=== PATIENT | male | born 1945 | race Caucasian/White ===

== ENCOUNTER 2019-11-09 14:40 | Inpatient (IN) ==
[2019-11-09] MEDS ORDERED: clonazePAM 0.5 MG TABLET PO STA (18:29)
[2019-11-09] MEDS ORDERED: *HR* FentaNYL (PF) 100 MCG/2 ML VIAL IVP STA (19:26)
[2019-11-09] MEDS ORDERED: Ondansetron 4 MG/2 ML VIAL IVP ONE (19:26)
[2019-11-09 20:41] LABS: Hematocrit 39.3 % (37.5-50.1); Hemoglobin 13.1 g/dL (12.9-16.9); Mean Corpuscular HGB Conc 33.3 g/dL (31.6-35.5); Mean Corpuscular Hemoglobin 31.9 pg (28.0-33.3); Mean Corpuscular Volume 95.6 fL (83.0-100.0); Mean Platelet Volume 9.2 fL (9.4-12.4); Platelet Count 206 K/mcL (140-400); Red Blood Count 4.11 M/mcL (4.19-5.50); Red Cell Distribution Width 12.1 % (11.5-14.5)
[2019-11-09 21:00] LABS: BUN/Creatinine Ratio 32 (6-26); Blood Urea Nitrogen 24 mg/dL (8-23); Calcium 8.6 mg/dL (8.6-10.3); Carbon Dioxide 30 mEq/L (23-29); Chloride 98 mEq/L (98-107); Glucose 135 mg/dL (70-105); Osmolality,Calculated 274 (280-300); Potassium 4.8 mEq/L (3.5-5.1); Sodium 129 mEq/L (136-145); eGFR For African Americans > 60 (> 60); eGFR For Non-African Americans > 60 (> 60)
[2019-11-09] MEDS ORDERED: Naloxone 0.4 MG/ML INJ IVP PRN (21:42)
[2019-11-09] MEDS ORDERED: 0.9 % Sodium Chloride 1,000 ML IVC SCH (22:15)
[2019-11-09] MEDS ORDERED: *HR* Rivaroxaban 10 MG TABLET PO SCH (22:45)
[2019-11-10] MEDS: Levalbuterol 1 PUFF INHALER IH SCH ×4 (04:01→21:26)
[2019-11-10 05:06] LABS: Basophils % 0.1 %; Hematocrit 39.8 % (37.5-50.1); Immature Granulocytes % 0.6 % (0-4); Lymphocytes # 0.9 K/mcL (0.6-4.6); Lymphocytes % 7.6 %; Mean Corpuscular HGB Conc 32.7 g/dL (31.6-35.5); Mean Corpuscular Hemoglobin 31.9 pg (28.0-33.3); Mean Corpuscular Volume 97.8 fL (83.0-100.0); Mean Platelet Volume 9.4 fL (9.4-12.4); Monocytes # 1.8 K/mcL (0.0-1.3); Monocytes % 15.6 %; Platelet Count 177 K/mcL (140-400); Red Blood Count 4.07 M/mcL (4.19-5.50); Red Cell Distribution Width 12.2 % (11.5-14.5); Segmented Neutrophils % 76.1 %; White Blood Count 11.8 K/mcL (4.3-11.1)
[2019-11-10 05:25] LABS: BUN/Creatinine Ratio 30 (6-26); Blood Urea Nitrogen 23 mg/dL (8-23); Calcium 8.9 mg/dL (8.6-10.3); Carbon Dioxide 30 mEq/L (23-29); Chloride 98 mEq/L (98-107); Glucose 108 mg/dL (70-105); Osmolality,Calculated 278 (280-300); Potassium 4.7 mEq/L (3.5-5.1); Sodium 132 mEq/L (136-145); eGFR For African Americans > 60 (> 60); eGFR For Non-African Americans > 60 (> 60)
[2019-11-10] MEDS: Metoprolol 100 MG TABLET PO SCH ×2 (08:04→21:05)
[2019-11-10] MEDS ORDERED: *HR* Metoprolol 5 MG/5 ML VIAL IVP STA (19:07)
[2019-11-10] MEDS: 0.9 % Sodium Chloride 1,000 ML IVC SCH (23:30)
[2019-11-11] MEDS ORDERED: Amiodarone Premix 150 MG/100 ML BAG IVPB ONE ×2 (01:38→03:29)
[2019-11-11] MEDS: Levalbuterol 1 PUFF INHALER IH SCH ×4 (03:37→21:52)
[2019-11-11] MEDS ORDERED: Amiodarone Premix 360 MG/200 ML BAG IVC ONE (04:00)
[2019-11-11 04:17] LABS: BUN/Creatinine Ratio 34 (6-26); Blood Urea Nitrogen 21 mg/dL (8-23); Carbon Dioxide 29 mEq/L (23-29); Chloride 98 mEq/L (98-107); Glucose 123 mg/dL (70-105); Osmolality,Calculated 282 (280-300); Potassium 4.2 mEq/L (3.5-5.1); Sodium 134 mEq/L (136-145); eGFR For African Americans > 60 (> 60); eGFR For Non-African Americans > 60 (> 60)
[2019-11-11] MEDS: clonazePAM 0.5 MG TABLET PO PRN ×2 (05:12→17:33)
[2019-11-11] MEDS: Metoprolol 100 MG TABLET PO SCH ×2 (06:56→22:44)
[2019-11-11] MEDS: hydrOXYzine pamoate 25 MG CAPSULE PO PRN ×2 (06:56→20:01)
[2019-11-11] MEDS: Amiodarone Premix 360 MG/200 ML BAG IVC SCH ×2 (11:07→22:45)
[2019-11-11] MEDS: 0.9 % Sodium Chloride 1,000 ML IVC SCH (12:45)
[2019-11-11] MEDS: *HR* Rivaroxaban 10 MG TABLET PO SCH (17:33)
[2019-11-11] MEDS ORDERED: *HR* LORazepam 2 MG/ML VIAL IVP PRN (17:56)
[2019-11-11] MEDS: *HR* LORazepam 2 MG/ML VIAL IVP PRN ×2 (18:48→20:00)
[2019-11-12] MEDS: *HR* LORazepam 2 MG/ML VIAL IVP PRN ×2 (00:34→20:17)
[2019-11-12 03:23] LABS: Basophils % 0.4 %; Eosinophils % 0.3 %; Hematocrit 38.4 % (37.5-50.1); Hemoglobin 12.5 g/dL (12.9-16.9); Immature Granulocytes % 0.4 % (0-4); Lymphocytes # 0.9 K/mcL (0.6-4.6); Lymphocytes % 8.4 %; Mean Corpuscular HGB Conc 32.6 g/dL (31.6-35.5); Mean Corpuscular Hemoglobin 31.6 pg (28.0-33.3); Mean Corpuscular Volume 97.2 fL (83.0-100.0); Mean Platelet Volume 9.9 fL (9.4-12.4); Monocytes # 1.9 K/mcL (0.0-1.3); Monocytes % 16.9 %; Neutrophils # 8.2 K/mcL (1.6-8.9); Platelet Count 203 K/mcL (140-400); Red Blood Count 3.95 M/mcL (4.19-5.50); Red Cell Distribution Width 12.3 % (11.5-14.5); Segmented Neutrophils % 73.6 %; White Blood Count 11.1 K/mcL (4.3-11.1)
[2019-11-12] MEDS: Levalbuterol 1 PUFF INHALER IH SCH ×4 (03:57→21:24)
[2019-11-12] MEDS: clonazePAM 0.5 MG TABLET PO PRN (08:20)
[2019-11-12] MEDS: Folic Acid 1 MG TABLET PO SCH (08:20)
[2019-11-12] MEDS: Thiamine (B-1) 100 MG TABLET PO SCH (08:20)
[2019-11-12] MEDS: Metoprolol 100 MG TABLET PO SCH ×2 (08:20→20:17)
[2019-11-12] MEDS: *HR* Rivaroxaban 10 MG TABLET PO SCH (16:26)
[2019-11-12] MEDS ORDERED: 0.9 % Sodium Chloride 250 ML IVC ONE (18:59)
[2019-11-13] MEDS: *HR* LORazepam 2 MG/ML VIAL IVP PRN (03:12)
[2019-11-13] MEDS: Levalbuterol 1 PUFF INHALER IH SCH ×2 (04:12→11:30)
[2019-11-13 07:11] LABS: BUN/Creatinine Ratio 28 (6-26); Blood Urea Nitrogen 20 mg/dL (8-23); Calcium 8.5 mg/dL (8.6-10.3); Carbon Dioxide 31 mEq/L (23-29); Chloride 101 mEq/L (98-107); Glucose 123 mg/dL (70-105); Magnesium 1.8 mg/dL (1.6-2.6); Osmolality,Calculated 288 (280-300); Phosphorous 2.8 mg/dL (2.7-4.5); Potassium 3.9 mEq/L (3.5-5.1); Sodium 137 mEq/L (136-145); eGFR For African Americans > 60 (> 60); eGFR For Non-African Americans > 60 (> 60)
[2019-11-13] MEDS: Folic Acid 1 MG TABLET PO SCH (08:11)
[2019-11-13] MEDS: Metoprolol 100 MG TABLET PO SCH (08:11)
[2019-11-13] MEDS: Thiamine (B-1) 100 MG TABLET PO SCH (08:11)
[2019-11-13 12:09] VITALS: BP 122/73
== END 2019-11-13 13:33 | disposition home health service (06) | DRG 200 ==
LOC: 2NENU 14:40 → EMEROOARM 14:40 → SUATTDRO 20:09 → 2NENU 21:38 → 3NENU 11-11 12:30 → SUATTDRO 11-11 12:31
PROVIDERS: ADMIT Internal Medicine; ATTEND Internal Medicine

== ENCOUNTER 2020-01-22 18:51 | Inpatient (IN) ==
[2020-01-22] MEDS ORDERED: *HR* Promethazine 25 MG/ML VIAL IVP PRN (21:50)
[2020-01-22] MEDS ORDERED: Acetaminophen 325 MG TABLET PO PRN (21:50)
[2020-01-22] MEDS ORDERED: Naloxone 0.4 MG/ML INJ IVP PRN (21:50)
[2020-01-22] MEDS ORDERED: clonazePAM 0.5 MG TABLET PO PRN (22:51)
[2020-01-22] MEDS ORDERED: hydrOXYzine pamoate 25 MG CAPSULE PO PRN (22:51)
[2020-01-23 01:26] LABS: Basophils # 0.1 K/mcL (0.0-0.2); Basophils % 0.6 %; Eosinophils # 0.1 K/mcL (0.0-0.6); Eosinophils % 1.3 %; Hematocrit 40.7 % (37.5-50.1); Hemoglobin 13.5 g/dL (12.9-16.9); Immature Granulocytes % 0.3 % (0-4); Lymphocytes # 1.3 K/mcL (0.6-4.6); Lymphocytes % 14.4 %; Mean Corpuscular HGB Conc 33.2 g/dL (31.6-35.5); Mean Corpuscular Volume 96.4 fL (83.0-100.0); Mean Platelet Volume 9.4 fL (9.4-12.4); Monocytes # 0.9 K/mcL (0.0-1.3); Monocytes % 10.3 %; Neutrophils # 6.6 K/mcL (1.6-8.9); Platelet Count 205 K/mcL (140-400); Red Blood Count 4.22 M/mcL (4.19-5.50); Red Cell Distribution Width 12.8 % (11.5-14.5); Segmented Neutrophils % 73.1 %; White Blood Count 9.1 K/mcL (4.3-11.1)
[2020-01-23 01:46] LABS: BUN/Creatinine Ratio 16 (6-26); Blood Urea Nitrogen 16 mg/dL (8-23); Calcium 8.9 mg/dL (8.6-10.3); Carbon Dioxide 28 mEq/L (23-29); Chloride 100 mEq/L (98-107); Glucose 195 mg/dL (70-105); Osmolality,Calculated 283 (280-300); Phosphorous 2.9 mg/dL (2.7-4.5); Potassium 4.4 mEq/L (3.5-5.1); Sodium 133 mEq/L (136-145); eGFR For African Americans > 60 (> 60); eGFR For Non-African Americans > 60 (> 60)
[2020-01-23] MEDS ORDERED: D5% in Water 1,000 ML IVC PRN (07:16)
[2020-01-23] MEDS ORDERED: Dextrose Gel 15 GM/37.5 ML TUBE PO PRN ×2 (07:16)
[2020-01-23] MEDS ORDERED: *HR* Dextrose 50 % in Water (Vial) 50 ML VIAL IVP PRN (07:16)
[2020-01-23] MEDS: Insulin LISPRO 300 UNITS/3 ML VIAL SQ SCH ×3 (07:37→15:56)
[2020-01-23] MEDS: Metoprolol XL (24 HR) Succ 50 MG TAB.ER.24H PO SCH (07:50)
[2020-01-23] MEDS ORDERED: Ipratropium/Albuterol Neb 3 ML IH PRN (10:05)
[2020-01-23] MEDS ORDERED: Insulin LISPRO 300 UNITS/3 ML VIAL SQ SCH (21:00)
[2020-01-24 01:36] LABS: Basophils # 0.1 K/mcL (0.0-0.2); Basophils % 0.5 %; Eosinophils # 0.1 K/mcL (0.0-0.6); Eosinophils % 1.2 %; Hematocrit 40.1 % (37.5-50.1); Hemoglobin 13.2 g/dL (12.9-16.9); Immature Granulocytes % 0.2 % (0-4); Lymphocytes # 1.1 K/mcL (0.6-4.6); Lymphocytes % 11.1 %; Mean Corpuscular HGB Conc 32.9 g/dL (31.6-35.5); Mean Corpuscular Hemoglobin 31.6 pg (28.0-33.3); Mean Corpuscular Volume 95.9 fL (83.0-100.0); Mean Platelet Volume 9.7 fL (9.4-12.4); Monocytes # 1.2 K/mcL (0.0-1.3); Neutrophils # 7.3 K/mcL (1.6-8.9); Platelet Count 210 K/mcL (140-400); Red Blood Count 4.18 M/mcL (4.19-5.50); Red Cell Distribution Width 12.7 % (11.5-14.5); White Blood Count 9.7 K/mcL (4.3-11.1)
[2020-01-24 01:52] LABS: BUN/Creatinine Ratio 23 (6-26); Blood Urea Nitrogen 18 mg/dL (8-23); Calcium 9.1 mg/dL (8.6-10.3); Carbon Dioxide 26 mEq/L (23-29); Chloride 101 mEq/L (98-107); Glucose 102 mg/dL (70-105); Osmolality,Calculated 280 (280-300); Potassium 4.4 mEq/L (3.5-5.1); Sodium 134 mEq/L (136-145); eGFR For African Americans > 60 (> 60); eGFR For Non-African Americans > 60 (> 60)
[2020-01-24] MEDS ORDERED: CeFAZolin Syr 2,000MG/20 ML 2,000 MG/20 ML SYRINGE IVPB ONE ×2 (06:00→08:15)
[2020-01-24] MEDS: Insulin LISPRO 300 UNITS/3 ML VIAL SQ SCH (07:43)
[2020-01-24] MEDS: Metoprolol XL (24 HR) Succ 50 MG TAB.ER.24H PO SCH (07:59)
[2020-01-24] MEDS ORDERED: *HR* Propofol 200 MG/20 ML VIAL IVP ONE (08:04)
[2020-01-24] MEDS ORDERED: *HR* FentaNYL (PF) 100 MCG/2 ML VIAL ONE (08:04)
[2020-01-24] MEDS ORDERED: Ondansetron 4 MG/2 ML VIAL ONE (08:04)
[2020-01-24] MEDS ORDERED: Lidocaine -MPF 2% 2 ML VIAL ONE (08:04)
[2020-01-24] MEDS ORDERED: *HR* Succinylcholine 200 MG/10 ML VIAL IVP ONE (08:04)
[2020-01-24] MEDS ORDERED: Dexamethasone 4 MG/ML VIAL ONE (08:04)
[2020-01-24] MEDS ORDERED: *HR* Rocuronium Bromide 50 MG/5 ML VIAL ONE (08:04)
[2020-01-24] MEDS ORDERED: flumazeniL 0.5 MG/5 ML VIAL IVP PRN (09:11)
[2020-01-24] MEDS ORDERED: Ondansetron 4 MG/2 ML VIAL IVP ONE (09:11)
[2020-01-24] MEDS ORDERED: Naloxone 0.4 MG/ML INJ IVP PRN (09:11)
[2020-01-24] MEDS ORDERED: *HR* OxyCODONE Immed Rel 5 MG TABLET PO PRN (09:11)
[2020-01-24] MEDS ORDERED: *HR* FentaNYL (PF) 100 MCG/2 ML VIAL IVP PRN (09:11)
[2020-01-24] MEDS ORDERED: EPHEDrine 50 MG/ML VIAL ONE (09:37)
[2020-01-24] MEDS: *HR* HYDROmorphone PF 0.5 MG/0.5 ML SYRINGE IVP PRN ×4 (10:53→11:08)
[2020-01-24] MEDS ORDERED: Acetaminophen 325 MG TABLET PO PRN (12:06)
[2020-01-24] MEDS ORDERED: Ipratropium/Albuterol Neb 3 ML IH PRN (12:06)
[2020-01-24] MEDS ORDERED: clonazePAM 0.5 MG TABLET PO PRN (12:06)
[2020-01-24] MEDS ORDERED: Ondansetron 4 MG/2 ML VIAL IVP PRN (12:06)
[2020-01-24] MEDS: 0.9 % Sodium Chloride 1,000 ML IVC SCH (12:29)
[2020-01-24] MEDS: Gabapentin 300 MG CAPSULE PO SCH ×2 (14:26→21:11)
[2020-01-24] MEDS: *HR* Heparin 5,000 UNIT/ML VIAL SQ SCH ×3 (14:26→21:42)
[2020-01-24] MEDS: Sennosides/Docusate Sodium TABLET PO SCH (21:11)
[2020-01-24] MEDS: Famotidine 20 MG TABLET PO SCH (21:11)
[2020-01-25 01:53] LABS: Basophils % 0.1 %; Hematocrit 39.6 % (37.5-50.1); Immature Granulocytes % 0.5 % (0-4); Lymphocytes # 0.6 K/mcL (0.6-4.6); Mean Corpuscular HGB Conc 32.8 g/dL (31.6-35.5); Mean Corpuscular Hemoglobin 32.3 pg (28.0-33.3); Mean Corpuscular Volume 98.3 fL (83.0-100.0); Monocytes # 1.9 K/mcL (0.0-1.3); Monocytes % 12.3 %; Neutrophils # 12.6 K/mcL (1.6-8.9); Platelet Count 156 K/mcL (140-400); Red Blood Count 4.03 M/mcL (4.19-5.50); Red Cell Distribution Width 13.1 % (11.5-14.5); Segmented Neutrophils % 83.1 %; White Blood Count 15.1 K/mcL (4.3-11.1)
[2020-01-25] MEDS: 0.9 % Sodium Chloride 1,000 ML IVC SCH (02:04)
[2020-01-25 04:58] LABS: BUN/Creatinine Ratio 29 (6-26); Blood Urea Nitrogen 28 mg/dL (8-23); Calcium 8.8 mg/dL (8.6-10.3); Carbon Dioxide 29 mEq/L (23-29); Chloride 102 mEq/L (98-107); Glucose 144 mg/dL (70-105); Osmolality,Calculated 284 (280-300); Potassium 5.4 mEq/L (3.5-5.1); Sodium 133 mEq/L (136-145); eGFR For African Americans > 60 (> 60); eGFR For Non-African Americans > 60 (> 60)
[2020-01-25] MEDS: *HR* Heparin 5,000 UNIT/ML VIAL SQ SCH ×3 (05:06→20:01)
[2020-01-25] MEDS: Metoprolol XL (24 HR) Succ 50 MG TAB.ER.24H PO SCH (08:43)
[2020-01-25] MEDS: Famotidine 20 MG TABLET PO SCH ×2 (08:43→20:00)
[2020-01-25] MEDS: Sennosides/Docusate Sodium TABLET PO SCH ×2 (08:43→20:01)
[2020-01-25] MEDS: Gabapentin 300 MG CAPSULE PO SCH ×3 (08:43→20:01)
[2020-01-25 11:26] LABS: BUN/Creatinine Ratio 26 (6-26); Blood Urea Nitrogen 25 mg/dL (8-23); Calcium 8.7 mg/dL (8.6-10.3); Carbon Dioxide 29 mEq/L (23-29); Chloride 102 mEq/L (98-107); Glucose 85 mg/dL (70-105); Osmolality,Calculated 284 (280-300); Potassium 4.4 mEq/L (3.5-5.1); Sodium 135 mEq/L (136-145); eGFR For African Americans > 60 (> 60); eGFR For Non-African Americans > 60 (> 60)
[2020-01-26 02:44] LABS: Basophils % 0.1 %; Eosinophils % 0.1 %; Hematocrit 38.1 % (37.5-50.1); Hemoglobin 12.6 g/dL (12.9-16.9); Immature Granulocytes % 0.7 % (0-4); Lymphocytes % 6.6 %; Mean Corpuscular HGB Conc 33.1 g/dL (31.6-35.5); Mean Corpuscular Hemoglobin 31.6 pg (28.0-33.3); Mean Corpuscular Volume 95.5 fL (83.0-100.0); Mean Platelet Volume 10.5 fL (9.4-12.4); Monocytes # 1.9 K/mcL (0.0-1.3); Monocytes % 12.3 %; Neutrophils # 12.1 K/mcL (1.6-8.9); Platelet Count 182 K/mcL (140-400); Red Blood Count 3.99 M/mcL (4.19-5.50); Red Cell Distribution Width 12.9 % (11.5-14.5); Segmented Neutrophils % 80.2 %; White Blood Count 15.1 K/mcL (4.3-11.1)
[2020-01-26 02:48] LABS: BUN/Creatinine Ratio 36 (6-26); Blood Urea Nitrogen 24 mg/dL (8-23); Calcium 8.7 mg/dL (8.6-10.3); Carbon Dioxide 26 mEq/L (23-29); Chloride 103 mEq/L (98-107); Glucose 103 mg/dL (70-105); Osmolality,Calculated 284 (280-300); Potassium 4.8 mEq/L (3.5-5.1); Sodium 135 mEq/L (136-145); eGFR For African Americans > 60 (> 60); eGFR For Non-African Americans > 60 (> 60)
[2020-01-26] MEDS: *HR* Heparin 5,000 UNIT/ML VIAL SQ SCH ×3 (04:44→20:36)
[2020-01-26] MEDS: Gabapentin 300 MG CAPSULE PO SCH ×3 (08:00→20:42)
[2020-01-26] MEDS: Sennosides/Docusate Sodium TABLET PO SCH ×2 (08:00→20:42)
[2020-01-26] MEDS: Metoprolol XL (24 HR) Succ 50 MG TAB.ER.24H PO SCH (08:00)
[2020-01-26] MEDS: Famotidine 20 MG TABLET PO SCH ×2 (08:00→20:41)
[2020-01-27 04:00] LABS: Basophils % 0.3 %; Eosinophils % 0.3 %; Hematocrit 40.2 % (37.5-50.1); Hemoglobin 13.2 g/dL (12.9-16.9); Immature Granulocytes % 0.5 % (0-4); Lymphocytes % 9.4 %; Mean Corpuscular HGB Conc 32.8 g/dL (31.6-35.5); Mean Corpuscular Hemoglobin 31.3 pg (28.0-33.3); Mean Corpuscular Volume 95.3 fL (83.0-100.0); Mean Platelet Volume 9.2 fL (9.4-12.4); Monocytes # 1.6 K/mcL (0.0-1.3); Monocytes % 14.5 %; Neutrophils # 8.1 K/mcL (1.6-8.9); Platelet Count 223 K/mcL (140-400); Red Blood Count 4.22 M/mcL (4.19-5.50); Red Cell Distribution Width 13.2 % (11.5-14.5); White Blood Count 10.8 K/mcL (4.3-11.1)
[2020-01-27] MEDS: *HR* Heparin 5,000 UNIT/ML VIAL SQ SCH (05:12)
[2020-01-27] MEDS: Metoprolol XL (24 HR) Succ 50 MG TAB.ER.24H PO SCH (08:30)
[2020-01-27] MEDS: Famotidine 20 MG TABLET PO SCH (08:30)
[2020-01-27] MEDS: Sennosides/Docusate Sodium TABLET PO SCH (08:30)
[2020-01-27] MEDS: Gabapentin 300 MG CAPSULE PO SCH (08:30)
[2020-01-27 08:36] VITALS: BP 125/88
== END 2020-01-27 10:32 | disposition home or self-care (01) | DRG 164 ==
LOC: 2NNU → SUATTDRO 20:30
PROVIDERS: ADMIT Internal Medicine; ATTEND Family Medicine

== ENCOUNTER 2020-09-17 22:32 | Observation (INO) ==
[2020-09-17] MEDS ORDERED: Cefdinir 300 MG CAPSULE PO ONE (23:09)
[2020-09-17 23:20] LABS: Basophils # 0.1 K/mcL (0.0-0.2); Basophils % 0.6 %; Eosinophils # 0.1 K/mcL (0.0-0.6); Eosinophils % 1.5 %; Hematocrit 41.7 % (37.5-50.1); Hemoglobin 13.5 g/dL (12.9-16.9); Immature Granulocytes % 0.4 % (0-4); Lymphocytes # 1.1 K/mcL (0.6-4.6); Lymphocytes % 14.2 %; Mean Corpuscular HGB Conc 32.4 g/dL (31.6-35.5); Mean Corpuscular Hemoglobin 31.3 pg (28.0-33.3); Mean Corpuscular Volume 96.5 fL (83.0-100.0); Mean Platelet Volume 8.7 fL (9.4-12.4); Monocytes # 1.3 K/mcL (0.0-1.3); Monocytes % 16.5 %; Neutrophils # 5.3 K/mcL (1.6-8.9); Platelet Count 226 K/mcL (140-400); Red Blood Count 4.32 M/mcL (4.19-5.50); Red Cell Distribution Width 13.2 % (11.5-14.5); Segmented Neutrophils % 66.8 %; White Blood Count 7.9 K/mcL (4.3-11.1)
[2020-09-17] MEDS ORDERED: Ipratropium/Albuterol Neb 3 ML IH ONE (23:32)
[2020-09-17] MEDS ORDERED: methylPREDNISolone 125 MG/2 ML VIAL IVP ONE (23:33)
[2020-09-17 23:38] LABS: BUN/Creatinine Ratio 19 (6-26); Blood Urea Nitrogen 16 mg/dL (8-23); Calcium 9.4 mg/dL (8.6-10.3); Carbon Dioxide 33 mEq/L (23-29); Chloride 100 mEq/L (98-107); Glucose 100 mg/dL (70-105); Osmolality,Calculated 285 (280-300); Potassium 4.9 mEq/L (3.5-5.1); Sodium 137 mEq/L (136-145); eGFR For African Americans > 60 (> 60); eGFR For Non-African Americans > 60 (> 60)
[2020-09-17 23:39] LABS: Troponin I < 0.03 ng/mL (< 0.04)
[2020-09-17] MEDS ORDERED: Isovue-370 500 ML BOTTLE IVP ONE (23:56)
[2020-09-18] MEDS ORDERED: Albuterol 2.5 MG/3 ML NEBULIZER IH ONE (02:25)
[2020-09-18] MEDS ORDERED: Azithromycin 500 MG in 0.9 % Sodium Chloride 250 ML IVPB ONE (02:34)
[2020-09-18] MEDS ORDERED: Acetaminophen 325 MG TABLET PO PRN (03:30)
[2020-09-18] MEDS ORDERED: Naloxone 0.4 MG/ML INJ IVP PRN (03:30)
[2020-09-18] MEDS ORDERED: Ipratropium/Albuterol Neb 3 ML IH SCH (04:00)
[2020-09-18 04:50] LABS: Basophils % 0.1 %; Hematocrit 38.8 % (37.5-50.1); Hemoglobin 12.6 g/dL (12.9-16.9); Immature Granulocytes % 0.4 % (0-4); Lymphocytes # 0.4 K/mcL (0.6-4.6); Lymphocytes % 4.9 %; Mean Corpuscular HGB Conc 32.5 g/dL (31.6-35.5); Mean Corpuscular Hemoglobin 30.8 pg (28.0-33.3); Mean Corpuscular Volume 94.9 fL (83.0-100.0); Mean Platelet Volume 9.1 fL (9.4-12.4); Monocytes % 0.4 %; Neutrophils # 6.8 K/mcL (1.6-8.9); Platelet Count 200 K/mcL (140-400); Red Blood Count 4.09 M/mcL (4.19-5.50); Red Cell Distribution Width 13.2 % (11.5-14.5); Segmented Neutrophils % 94.2 %; White Blood Count 7.2 K/mcL (4.3-11.1)
[2020-09-18 05:12] LABS: Alanine Aminotransferase 9 Units/L (7-52); Albumin 3.9 g/dL (3.5-5.7); Albumin/Globulin Ratio 1.5 (1.1-2.2); Alkaline Phosphatase 88 Units/L (34-104); Aspartate Amino Transferase 18 Units/L (13-39); BUN/Creatinine Ratio 21 (6-26); Bilirubin,Total 0.4 mg/dL (0.3-1.0); Blood Urea Nitrogen 16 mg/dL (8-23); Calcium 8.8 mg/dL (8.6-10.3); Carbon Dioxide 22 mEq/L (23-29); Chloride 101 mEq/L (98-107); Globulin 2.6 g/dL (2.4-3.5); Glucose 267 mg/dL (70-105); Osmolality,Calculated 287 (280-300); Potassium 4.6 mEq/L (3.5-5.1); Sodium 133 mEq/L (136-145); Total Protein 6.5 g/dL (6.4-8.9); eGFR For African Americans > 60 (> 60); eGFR For Non-African Americans > 60 (> 60)
[2020-09-18] MEDS ORDERED: MethylPREDNISolone 40 MG/ML VIAL IVP SCH ×3 (06:00→18:00)
[2020-09-18] MEDS: Levalbuterol Neb 1.25 MG/3 ML IH SCH ×5 (07:37→23:45)
[2020-09-18] MEDS: Metoprolol XL (24 HR) Succ 50 MG TAB.ER.24H PO SCH (07:53)
[2020-09-18] MEDS: clonazePAM 0.5 MG TABLET PO SCH ×2 (16:24→19:47)
[2020-09-18] MEDS ORDERED: *HR* Rivaroxaban 10 MG TABLET PO SCH (17:00)
[2020-09-19] MEDS: Levalbuterol Neb 1.25 MG/3 ML IH SCH ×2 (03:52→07:31)
[2020-09-19] MEDS: Metoprolol XL (24 HR) Succ 50 MG TAB.ER.24H PO SCH (07:04)
[2020-09-19 08:49] VITALS: BP 129/72
[2020-09-19] MEDS ORDERED: predniSONE 20 MG TABLET PO SCH (09:00)
[2020-09-19] MEDS ORDERED: Azithromycin 500 MG in 0.9 % Sodium Chloride 250 ML IVPB SCH (09:00)
== END 2020-09-19 10:55 | disposition home or self-care (01) ==
LOC: EMEROOARM 22:32 → 2ANU 22:32 → SUATTDRO 09-18 02:50 → 2ANU 09-18 03:38
PROVIDERS: ADMIT Internal Medicine; ATTEND General Practice

== ENCOUNTER 2021-07-12 23:07 | Inpatient (IN) ==
[2021-07-12] MEDS ORDERED: 0.9 % Sodium Chloride 1,000 ML IVC ONE (23:13)
[2021-07-12 23:27] LABS: ABG Base Excess 0 mEq/L (-2 to 3); ABG HCO3 31 mEq/L (21-27); ABG Oxygen Saturation 89 % (95-98); ABG PCO2 81 mmHg (35-45); ABG PH 7.19 pH Units (7.32-7.45); ABG PO2 72 mmHg (85-104); ABG TCO2 33 mEq/L (20-26)
[2021-07-12 23:36] LABS: Bilirubin,Urine Negative (Negative); Blood,Urine Small (Negative); Clarity,Urine Turbid (Clear); Color,Urine Yellow (Yellow); Glucose,Urine (UA) 30 mg/dL (Normal); Hyaline Casts,Urine Many per lpf (None Seen); Ketones,Urine Trace mg/dL (Negative); Leukocyte Esterase,Urine Negative (Negative); Mucus,Urine Few per lpf (None-Few); Nitrite,Urine Negative (Negative); Protein,Urine >=300 mg/dL (Neg-Trace); Specific Gravity,Urine 1.028 (1.010-1.025); Squamous Epithelial Cell,Urine Few per hpf (None-Few); WBC,Urine 0-3 per hpf (0-3)
[2021-07-12 23:42] LABS: Basophils % 0.2 %; Hemoglobin 13.2 g/dL (12.9-16.9); Immature Granulocytes % 1.8 % (0-4); Lymphocytes # 0.7 K/mcL (0.6-4.6); Lymphocytes % 3.4 %; Mean Corpuscular Hemoglobin 30.7 pg (28.0-33.3); Mean Corpuscular Volume 102.3 fL (83.0-100.0); Mean Platelet Volume 9.1 fL (9.4-12.4); Monocytes # 2.7 K/mcL (0.0-1.3); Monocytes % 14.3 %; Neutrophils # 15.1 K/mcL (1.6-8.9); Nucleated Red Blood Cells 0.2 /100 WBC (0); Platelet Count 320 K/mcL (140-400); Red Cell Distribution Width 13.3 % (11.5-14.5); Segmented Neutrophils % 80.3 %; White Blood Count 18.9 K/mcL (4.3-11.1)
[2021-07-12 23:50] LABS: INR 5.2; Prothrombin Time 57.7 Seconds (9.4-12.1)
[2021-07-13 00:06] LABS: Troponin I 0.04 ng/mL (< 0.04)
[2021-07-13 00:07] LABS: Alanine Aminotransferase 199 Units/L (7-52); Albumin 3.5 g/dL (3.5-5.7); Albumin/Globulin Ratio 1.1 (1.1-2.2); Alkaline Phosphatase 127 Units/L (34-104); Aspartate Amino Transferase 289 Units/L (13-39); BUN/Creatinine Ratio 29 (6-26); Bilirubin,Direct 0.4 mg/dL (0.0-0.2); Bilirubin,Indirect 0.5 mg/dL (0.0-1.0); Bilirubin,Total 0.9 mg/dL (0.3-1.0); Blood Urea Nitrogen 38 mg/dL (8-23); Calcium 8.7 mg/dL (8.6-10.3); Carbon Dioxide 32 mEq/L (23-29); Chloride 96 mEq/L (98-107); Globulin 3.2 g/dL (2.4-3.5); Glucose 181 mg/dL (70-105); Influenza A PCR Negative (Negative); Influenza B PCR Negative (Negative); Osmolality,Calculated 294 (280-300); Resp. Syncytial Virus PCR Negative (Negative); Sodium 135 mEq/L (136-145); Total Protein 6.7 g/dL (6.4-8.9); eGFR For African Americans > 60 (> 60); eGFR For Non-African Americans 52 (> 60)
[2021-07-13 00:09] LABS: SARS-CoV-2 by PCR (In House) Negative (Negative)
[2021-07-13] MEDS ORDERED: Albuterol 2.5 MG/3 ML NEBULIZER IH ONE (00:47)
[2021-07-13] MEDS ORDERED: Sodium Bicarbonate 50 MEQ/50 ML VIAL IVP ONE (00:57)
[2021-07-13] MEDS ORDERED: Calcium Gluconate 1gm/50mL 1 GM/50 ML BAG IVPB ONE (00:57)
[2021-07-13] MEDS ORDERED: Insulin Human Regular 5 UNIT in 0.9 % Sodium Chloride 10 ML IV ONE (00:58)
[2021-07-13] MEDS ORDERED: *HR* Dextrose 50 % in Water (Syg) 50 ML SYRINGE IVP ONE (00:59)
[2021-07-13] MEDS ORDERED: SODIUM ZIRCONIUM CYCLOSILICATE 5 GM POWD.PACK PO ONE (01:00)
[2021-07-13] MEDS ORDERED: Isovue-370 500 ML BOTTLE IVP ONE (01:01)
[2021-07-13 01:43] LABS: ABG Base Excess 4 mEq/L (-2 to 3); ABG HCO3 34 mEq/L (21-27); ABG Oxygen Saturation 100 % (95-98); ABG PCO2 80 mmHg (35-45); ABG PH 7.24 pH Units (7.32-7.45); ABG PO2 361 mmHg (85-104); ABG TCO2 37 mEq/L (20-26)
[2021-07-13 02:05] LABS: Potassium 6.5 mEq/L (3.5-5.1)
[2021-07-13] MEDS ORDERED: 0.9 % Sodium Chloride 1,000 ML IV ONE (02:06)
[2021-07-13] MEDS ORDERED: cefTRIAXone 1,000 MG in Water for inj. (sterile) 10 ML IVP ONE (02:42)
[2021-07-13] MEDS ORDERED: *HR* Labetalol 20 MG/4 ML SYRINGE IVP ONE (02:47)
[2021-07-13] MEDS: Norepinephrine 4 MG/254 ML IV.SOLN IVC SCH ×2 (03:55→20:41)
[2021-07-13] MEDS: 0.9 % Sodium Chloride 1,000 ML IVC SCH ×3 (03:59→21:13)
[2021-07-13] MEDS ORDERED: Ondansetron 4 MG/2 ML VIAL IVP PRN (04:54)
[2021-07-13] MEDS ORDERED: Naloxone 0.4 MG/ML INJ IVP PRN ×2 (04:54)
[2021-07-13] MEDS ORDERED: Acetaminophen 325 MG TABLET PO PRN (04:54)
[2021-07-13] MEDS ORDERED: Perflutren Lipid Microsphere 1.3 ML in 0.9 % Sodium Chloride 8.7 ML IVP PRN (05:03)
[2021-07-13 08:57] LABS: Estimated Average Glucose 131 mg/dl; Hemoglobin A1C 6.2 %; INR 3.4; Prothrombin Time 37.6 Seconds (9.4-12.1)
[2021-07-13 09:12] LABS: Acetaminophen < 10 mcg/mL (10-20); Alanine Aminotransferase 497 Units/L (7-52); Albumin 3.2 g/dL (3.5-5.7); Albumin/Globulin Ratio 1.3 (1.1-2.2); Alkaline Phosphatase 109 Units/L (34-104); Aspartate Amino Transferase 667 Units/L (13-39); BUN/Creatinine Ratio 31 (6-26); Bilirubin,Direct 0.1 mg/dL (0.0-0.2); Bilirubin,Indirect 0.3 mg/dL (0.0-1.0); Bilirubin,Total 0.4 mg/dL (0.3-1.0); Blood Urea Nitrogen 37 mg/dL (8-23); Calcium 8.4 mg/dL (8.6-10.3); Carbon Dioxide 32 mEq/L (23-29); Chloride 100 mEq/L (98-107); Ethanol < 10 mg/dL (Less than 10); Globulin 2.4 g/dL (2.4-3.5); Glucose 154 mg/dL (70-105); Magnesium 2.2 mg/dL (1.6-2.6); Osmolality,Calculated 292 (280-300); Phosphorous 3.4 mg/dL (2.7-4.5); Potassium 5.9 mEq/L (3.5-5.1); Sodium 135 mEq/L (136-145); Total Protein 5.6 g/dL (6.4-8.9); Troponin I 0.04 ng/mL (< 0.04); eGFR For African Americans > 60 (> 60); eGFR For Non-African Americans 59 (> 60)
[2021-07-13 09:47] LABS: C-Reactive Protein 120 mg/L (Less than 10)
[2021-07-13 09:52] LABS: Hepatitis B Surface Antigen Nonreactive (Nonreactive)
[2021-07-13 10:20] LABS: Hepatitis C Virus Antibody Nonreactive (Nonreactive)
[2021-07-13 10:21] LABS: Hepatitis B Core IgM Nonreactive (Nonreactive)
[2021-07-13] MEDS: cefTRIAXone 1,000 MG in 0.9 % Sodium Chloride Mini Bag 100 ML IVPB SCH (10:53)
[2021-07-13] MEDS: Azithromycin 500 MG in 0.9 % Sodium Chloride 250 ML IVPB SCH (11:41)
[2021-07-13] MEDS ORDERED: QUEtiapine Fumarate 25 MG TABLET PO PRN (13:21)
[2021-07-13] MEDS ORDERED: clonazePAM 0.5 MG TABLET PO PRN (13:21)
[2021-07-13] MEDS ORDERED: Levalbuterol Neb 1.25 MG/3 ML IH PRN (13:21)
[2021-07-13 14:09] LABS: Hepatitis A Antibody IgM Nonreactive (Nonreactive)
[2021-07-13] MEDS ORDERED: *HR* Digoxin 0.5 MG/2 ML AMPUL IVP ONE (15:16)
[2021-07-13] MEDS ORDERED: Amiodarone Premix 360 MG/200 ML BAG IVC ONE (17:07)
[2021-07-13] MEDS ORDERED: Amiodarone Premix 150 MG/100 ML BAG IVPB ONE (17:07)
[2021-07-13 18:52] LABS: Amphetamine Screen,Urine Negative ng/mL (Cutoff=1000); Barbiturate Screen,Urine Negative ng/mL (Cutoff=200); Benzodiazepines Screen,Urine Negative ng/mL (Cutoff=200); Cannabinoid Screen,Urine Negative ng/mL (Cutoff = 50); Cocaine Screen,Urine Negative ng/mL (Cutoff= 300); Opiate Screen,Urine Negative ng/mL (Cutoff=300); Phencyclidine Screen,Urine Negative ng/mL (Cutoff=25)
[2021-07-13 18:57] LABS: VBG Ionized Calcium 1.23 mmol/L (1.15-1.35)
[2021-07-13 19:22] LABS: BUN/Creatinine Ratio 36 (6-26); Blood Urea Nitrogen 36 mg/dL (8-23); Carbon Dioxide 35 mEq/L (23-29); Chloride 102 mEq/L (98-107); Glucose 115 mg/dL (70-105); Osmolality,Calculated 293 (280-300); Potassium 5.8 mEq/L (3.5-5.1); Sodium 137 mEq/L (136-145); eGFR For African Americans > 60 (> 60); eGFR For Non-African Americans > 60 (> 60)
[2021-07-13] MEDS ORDERED: Mirtazapine 15 MG TABLET PO SCH (21:00)
[2021-07-13] MEDS ORDERED: Amiodarone Premix 360 MG/200 ML BAG IVC SCH (23:07)
[2021-07-14] MEDS: Amiodarone Premix 360 MG/200 ML BAG IVC SCH ×3 (00:02→15:20)
[2021-07-14 03:50] LABS: Basophils % 0.2 %; Hematocrit 34.9 % (37.5-50.1); Hemoglobin 10.5 g/dL (12.9-16.9); Immature Granulocytes % 0.5 % (0-4); Lymphocytes # 0.7 K/mcL (0.6-4.6); Lymphocytes % 5.6 %; Mean Corpuscular HGB Conc 30.1 g/dL (31.6-35.5); Mean Corpuscular Hemoglobin 30.2 pg (28.0-33.3); Mean Corpuscular Volume 100.3 fL (83.0-100.0); Mean Platelet Volume 9.2 fL (9.4-12.4); Monocytes # 1.3 K/mcL (0.0-1.3); Monocytes % 10.1 %; Neutrophils # 10.7 K/mcL (1.6-8.9); Platelet Count 237 K/mcL (140-400); Red Blood Count 3.48 M/mcL (4.19-5.50); Red Cell Distribution Width 13.7 % (11.5-14.5); Segmented Neutrophils % 83.6 %; White Blood Count 12.9 K/mcL (4.3-11.1)
[2021-07-14 03:57] LABS: INR 2.8; Prothrombin Time 30.9 Seconds (9.4-12.1)
[2021-07-14] MEDS: 0.9 % Sodium Chloride 1,000 ML IVC SCH (03:58)
[2021-07-14 04:00] LABS: Alanine Aminotransferase 376 Units/L (7-52); Albumin 2.6 g/dL (3.5-5.7); Albumin/Globulin Ratio 1.2 (1.1-2.2); Alkaline Phosphatase 84 Units/L (34-104); Aspartate Amino Transferase 255 Units/L (13-39); BUN/Creatinine Ratio 39 (6-26); Bilirubin,Direct 0.1 mg/dL (0.0-0.2); Bilirubin,Indirect 0.2 mg/dL (0.0-1.0); Bilirubin,Total 0.3 mg/dL (0.3-1.0); Blood Urea Nitrogen 35 mg/dL (8-23); Calcium 7.8 mg/dL (8.6-10.3); Carbon Dioxide 33 mEq/L (23-29); Chloride 102 mEq/L (98-107); Globulin 2.2 g/dL (2.4-3.5); Glucose 100 mg/dL (70-105); Osmolality,Calculated 290 (280-300); Phosphorous 2.5 mg/dL (2.7-4.5); Potassium 4.9 mEq/L (3.5-5.1); Sodium 136 mEq/L (136-145); Total Protein 4.8 g/dL (6.4-8.9); eGFR For African Americans > 60 (> 60); eGFR For Non-African Americans > 60 (> 60)
[2021-07-14] MEDS ORDERED: Albumin 25% 25gram/100mL 25 GM/100 ML IV.SOLN IVPB ONE (04:48)
[2021-07-14] MEDS: cefTRIAXone 1,000 MG in 0.9 % Sodium Chloride Mini Bag 100 ML IVPB SCH (07:37)
[2021-07-14] MEDS ORDERED: *HR* Digoxin 0.5 MG/2 ML AMPUL IVP ONE (07:56)
[2021-07-14] MEDS: Azithromycin 500 MG in 0.9 % Sodium Chloride 250 ML IVPB SCH (08:00)
[2021-07-14] MEDS ORDERED: *HR* Rivaroxaban 10 MG TABLET PO SCH (09:00)
[2021-07-14] MEDS ORDERED: *HR* Metoprolol 5 MG/5 ML VIAL IVP PRN (10:47)
[2021-07-14] MEDS ORDERED: Naloxone 0.4 MG/ML INJ IVP PRN (16:49)
[2021-07-14] MEDS ORDERED: Ondansetron 4 MG/2 ML VIAL IVP PRN (16:49)
[2021-07-14] MEDS ORDERED: Acetaminophen 325 MG TABLET PO PRN (16:49)
[2021-07-14] MEDS ORDERED: Levalbuterol Neb 1.25 MG/3 ML IH PRN (16:49)
[2021-07-14] MEDS: Mirtazapine 15 MG TABLET PO SCH (20:28)
[2021-07-14] MEDS: QUEtiapine Fumarate 25 MG TABLET PO PRN (20:28)
[2021-07-14] MEDS: clonazePAM 0.5 MG TABLET PO PRN (23:55)
[2021-07-15] MEDS: *HR* Metoprolol 5 MG/5 ML VIAL IVP PRN ×2 (00:41→06:25)
[2021-07-15] MEDS ORDERED: *HR* Metoprolol 5 MG/5 ML VIAL IVP ONE (04:09)
[2021-07-15 05:31] LABS: Basophils % 0.2 %; Eosinophils % 0.2 %; Hematocrit 35.4 % (37.5-50.1); Hemoglobin 11.4 g/dL (12.9-16.9); Immature Granulocytes % 0.5 % (0-4); Lymphocytes # 0.7 K/mcL (0.6-4.6); Lymphocytes % 5.6 %; Mean Corpuscular HGB Conc 32.2 g/dL (31.6-35.5); Mean Corpuscular Hemoglobin 32.1 pg (28.0-33.3); Mean Corpuscular Volume 99.7 fL (83.0-100.0); Mean Platelet Volume 9.5 fL (9.4-12.4); Monocytes # 1.7 K/mcL (0.0-1.3); Monocytes % 13.2 %; Neutrophils # 10.5 K/mcL (1.6-8.9); Platelet Count 239 K/mcL (140-400); Red Blood Count 3.55 M/mcL (4.19-5.50); Red Cell Distribution Width 13.4 % (11.5-14.5); Segmented Neutrophils % 80.3 %; White Blood Count 13.1 K/mcL (4.3-11.1)
[2021-07-15 05:35] LABS: Alanine Aminotransferase 301 Units/L (7-52); Albumin 3.1 g/dL (3.5-5.7); Albumin/Globulin Ratio 1.3 (1.1-2.2); Alkaline Phosphatase 84 Units/L (34-104); Aspartate Amino Transferase 140 Units/L (13-39); BUN/Creatinine Ratio 45 (6-26); Bilirubin,Total 0.5 mg/dL (0.3-1.0); Blood Urea Nitrogen 31 mg/dL (8-23); Carbon Dioxide 30 mEq/L (23-29); Chloride 100 mEq/L (98-107); Globulin 2.3 g/dL (2.4-3.5); Glucose 69 mg/dL (70-105); Osmolality,Calculated 277 (280-300); Potassium 5.1 mEq/L (3.5-5.1); Sodium 131 mEq/L (136-145); Total Protein 5.4 g/dL (6.4-8.9); eGFR For African Americans > 60 (> 60); eGFR For Non-African Americans > 60 (> 60)
[2021-07-15] MEDS: cefTRIAXone 1,000 MG in 0.9 % Sodium Chloride Mini Bag 100 ML IVPB SCH (07:55)
[2021-07-15] MEDS ORDERED: *HR* LORazepam 2 MG/ML VIAL IVP ONE (08:27)
[2021-07-15] MEDS: Azithromycin 500 MG in 0.9 % Sodium Chloride 250 ML IVPB SCH (08:47)
[2021-07-15] MEDS ORDERED: *HR* Rivaroxaban 10 MG TABLET PO SCH (09:00)
[2021-07-15] MEDS ORDERED: Furosemide 20 MG/2 ML VIAL IVP ONE (13:05)
[2021-07-15] MEDS: clonazePAM 0.5 MG TABLET PO PRN (19:53)
[2021-07-15] MEDS: QUEtiapine Fumarate 25 MG TABLET PO PRN (19:53)
[2021-07-15] MEDS: Mirtazapine 15 MG TABLET PO SCH (19:53)
[2021-07-16] MEDS: *HR* Metoprolol 5 MG/5 ML VIAL IVP PRN ×2 (01:24→06:47)
[2021-07-16 04:58] LABS: ABG Base Excess 5 mEq/L (-2 to 3); ABG HCO3 38 mEq/L (21-27); ABG Oxygen Saturation 98 % (95-98); ABG PCO2 109 mmHg (35-45); ABG PH 7.15 pH Units (7.32-7.45); ABG PO2 132 mmHg (85-104); ABG TCO2 41 mEq/L (20-26); Blood Gas Modality AVAPS; Blood Gas VT 500 cc
[2021-07-16 05:55] LABS: VBG HCO3 40 mEq/L (21-27); VBG PCO2 112 mmHg (41-51); VBG PH 7.16 pH Units (7.32-7.42); VBG PO2 57 mmHg (25-50)
[2021-07-16 05:56] LABS: Basophils % 0.1 %; Hematocrit 39.8 % (37.5-50.1); Hemoglobin 11.8 g/dL (12.9-16.9); Immature Granulocytes % 0.6 % (0-4); Lymphocytes # 0.3 K/mcL (0.6-4.6); Lymphocytes % 3.1 %; Mean Corpuscular HGB Conc 29.6 g/dL (31.6-35.5); Mean Corpuscular Hemoglobin 30.6 pg (28.0-33.3); Mean Corpuscular Volume 103.4 fL (83.0-100.0); Mean Platelet Volume 8.9 fL (9.4-12.4); Monocytes # 1.1 K/mcL (0.0-1.3); Monocytes % 10.5 %; Neutrophils # 9.3 K/mcL (1.6-8.9); Platelet Count 241 K/mcL (140-400); Red Blood Count 3.85 M/mcL (4.19-5.50); Red Cell Distribution Width 13.3 % (11.5-14.5); Segmented Neutrophils % 85.7 %; White Blood Count 10.8 K/mcL (4.3-11.1)
[2021-07-16 07:14] LABS: Alanine Aminotransferase 278 Units/L (7-52); Albumin/Globulin Ratio 1.3 (1.1-2.2); Alkaline Phosphatase 95 Units/L (34-104); Aspartate Amino Transferase 117 Units/L (13-39); BUN/Creatinine Ratio 44 (6-26); Bilirubin,Direct 0.2 mg/dL (0.0-0.2); Bilirubin,Indirect 0.3 mg/dL (0.0-1.0); Bilirubin,Total 0.5 mg/dL (0.3-1.0); Blood Urea Nitrogen 36 mg/dL (8-23); Calcium 8.2 mg/dL (8.6-10.3); Carbon Dioxide 38 mEq/L (23-29); Chloride 99 mEq/L (98-107); Globulin 2.3 g/dL (2.4-3.5); Glucose 96 mg/dL (70-105); Magnesium 2.3 mg/dL (1.6-2.6); Osmolality,Calculated 292 (280-300); Phosphorous 3.3 mg/dL (2.7-4.5); Potassium 5.6 mEq/L (3.5-5.1); Sodium 137 mEq/L (136-145); Total Protein 5.3 g/dL (6.4-8.9); eGFR For African Americans > 60 (> 60); eGFR For Non-African Americans > 60 (> 60)
[2021-07-16] MEDS: Azithromycin 500 MG in 0.9 % Sodium Chloride 250 ML IVPB SCH (07:42)
[2021-07-16] MEDS: cefTRIAXone 1,000 MG in 0.9 % Sodium Chloride Mini Bag 100 ML IVPB SCH (07:46)
[2021-07-16] MEDS ORDERED: Calcium Gluconate 1gm/50mL 1 GM/50 ML BAG IVPB ONE (11:00)
[2021-07-16 11:10] VITALS: BP 113/78; PULSE 149; TEMP 98.1; O2SAT 95
[2021-07-16] MEDS ORDERED: *HR* Metoprolol 5 MG/5 ML VIAL IVP ONE (11:16)
[2021-07-16] MEDS ORDERED: Scopolamine Patch 1.5 MG PATCH.TD72 TD SCH (11:45)
[2021-07-16] MEDS: *HR* LORazepam 2 MG/ML VIAL IVP PRN ×3 (12:15→16:42)
[2021-07-16] MEDS: *HR* FentaNYL (PF) 100 MCG/2 ML VIAL IVP PRN ×3 (12:15→16:42)
== END 2021-07-16 19:10 | disposition expired | DRG 871 ==
LOC: EMEROOARM 23:07 → MERGE 23:07 → ICNU 07-13 12:24 → SUATTDRO 07-13 12:24 → ICNU 07-13 14:46 → 2ANU 07-14 18:34
PROVIDERS: ADMIT Family Medicine; ATTEND Internal Medicine